=== PATIENT | female | born 1975 | race American Indian/Alaskan Native ===

== ENCOUNTER → 2018-02-16 | Outpatient (CLI) | payer OTHER ==
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
== END | disposition home or self-care (01) ==
LOC: RADXRMAIN 15:46
PROVIDERS: ATTEND Emergency Medicine
DX: S83.402A Sprain of unspecified collateral ligament of left knee, initial encounter (principal); S80.12XA Contusion of left lower leg, initial encounter; S93.402A Sprain of unspecified ligament of left ankle, initial encounter

== ENCOUNTER → 2018-06-19 | Outpatient (CLI) | payer BC ==
[2018-06-19 08:12] LABS: Basophils # (A) 0.1 k/uL (0-0.2); Basophils % (A) 1 %; Eosinophils # (A) 0.4 k/uL (0-0.7); Eosinophils % (A) 4 %; HCT 38.7 % (34.0-46.0); HGB 12.4 gm/dL (11.4-16.0); Lymphocytes % (A) 28 %; MCH 29.3 pg (25.0-35.0); MCHC 32.1 g/dL (31.0-37.0); MCV 91.1 fL (80.0-100.0); Mean Platelet Volume 6.5; Monocytes # (A) 0.7 k/uL (0-1.0); Monocytes % (A) 6 %; Neutrophils # (A) 6.5 k/uL (1.3-7.7); Neutrophils % (A) 60 %; Platelet Count 487 k/uL (150-450); RBC 4.25 m/uL (3.80-5.40); RDW 13.7 % (11.5-15.5); WBC 10.8 k/uL (3.8-10.6)
[2018-06-19 08:54] LABS: ALT 37 U/L (9-52); AST 32 U/L (14-36); Albumin 3.9 g/dL (3.5-5.0); Alkaline Phosphatase 79 U/L (38-126); Anion Gap 9 mmol/L; Blood Urea Nitrogen 11 mg/dL (7-17); Carbon Dioxide 26 mmol/L (22-30); Chloride 106 mmol/L (98-107); Cholesterol 201 mg/dL (<200); Glucose 94 mg/dL (74-99); HDL Cholesterol 39 mg/dL (40-60); LDL Cholesterol,Calculated 111 mg/dL (0-99); Potassium 4.6 mmol/L (3.5-5.1); Sodium 141 mmol/L (137-145); Total Bilirubin 0.3 mg/dL (0.2-1.3); Total Protein 7.1 g/dL (6.3-8.2); Triglycerides 255 mg/dL (<150)
[2018-06-19 09:10] LABS: T4, Free (Free Thyroxine) 0.86 ng/dL (0.78-2.19)
== END | disposition home or self-care (01) ==
LOC: LABWHC1 07:34
PROVIDERS: ATTEND Family Medicine
DX: Z00.00 Encounter for general adult medical examination without abnormal findings (principal); F41.1 Generalized anxiety disorder; J06.9 Acute upper respiratory infection, unspecified; F33.0 Major depressive disorder, recurrent, mild
CPT/HCPCS: 36415; 80053; 80061; 84439; 84443; 85025

== ENCOUNTER → 2018-06-19 | Outpatient (CLI) | payer BC ==
--- NOTE | 2018-06-20 10:55 | MM ---
Reason for exam: screening (asymptomatic). Last mammogram was performed 3 years and 8 months ago. History: Family history of breast cancer in paternal aunt at age 40. Physical Findings: A clinical breast exam by your physician is recommended on an annual basis and results should be correlated with mammographic findings. MG 3D Screening Mammo W/Cad Bilateral CC and MLO view(s) were taken. Prior study comparison: October 07, 2014, bilateral MG screening mammo w CAD. The breast tissue is heterogeneously dense. This may lower the sensitivity of mammography. There is no discrete abnormality. ASSESSMENT: Benign, BI-RAD 2 RECOMMENDATION: Routine screening mammogram of both breasts in 1 year.
== END | disposition home or self-care (01) ==
LOC: RADMAMWWP 07:17
PROVIDERS: ATTEND Obstetrics & Gynecology
DX: Z12.31 Encounter for screening mammogram for malignant neoplasm of breast (principal)
CPT/HCPCS: 77063; 77067

== ENCOUNTER → 2019-02-24 | Outpatient (CLI) | payer BC ==
[2019-02-24 10:12] LABS: Basophils % (A) 1 %; Eosinophils # (A) 0.3 k/uL (0-0.7); Eosinophils % (A) 4 %; HCT 39.3 % (34.0-46.0); HGB 12.8 gm/dL (11.4-16.0); Lymphocytes % (A) 24 %; MCH 29.7 pg (25.0-35.0); MCHC 32.5 g/dL (31.0-37.0); MCV 91.5 fL (80.0-100.0); Mean Platelet Volume 6.2; Monocytes # (A) 0.5 k/uL (0-1.0); Monocytes % (A) 6 %; Neutrophils # (A) 5.5 k/uL (1.3-7.7); Neutrophils % (A) 65 %; Platelet Count 485 k/uL (150-450); RBC 4.29 m/uL (3.80-5.40); RDW 13.3 % (11.5-15.5); WBC 8.4 k/uL (3.8-10.6)
[2019-02-24 17:04] LABS: Albumin 4.3 g/dL (3.80-4.90); Albumin/Globulin Ratio 1.95 (1.60-3.17); Anion Gap 7.6 mmol/L (4.00-12.00); Calcium 9.1 mg/dL (8.7-10.3); Carbon Dioxide 24.4 mmol/L (21.6-31.8); Globulin 2.2 g/dL (1.6-3.3); Potassium 4.3 mmol/L (3.5-5.5); Total Bilirubin 0.2 mg/dL (0.2-1.2); Total Protein 6.5 g/dL (6.2-8.2)
[2019-02-24 17:08] LABS: T4, Free (Free Thyroxine) 1.1 ng/dL (0.80-1.80)
[2019-02-25 16:16] LABS: C. trachomatis,PCR Negative (Neg,Equiv); Chlamydia trachomatis Source Urine; N. gonorrhoeae,PCR Negative (Neg,Equiv); Neisseria Source Urine
[2019-02-26 19:16] LABS: HIV 1 AB Non-Reactive (Non-Reactive); HIV AB P24 Non-Reactive (Non-Reactive); HIV P24 AG Non-Reactive (Non-Reactive)
== END | disposition home or self-care (01) ==
LOC: LABWHC1 09:35
PROVIDERS: ATTEND Family Medicine
DX: F41.1 Generalized anxiety disorder (principal); Z20.2 Contact with and (suspected) exposure to infections with a predominantly sexual mode of transmission; Z71.41 Alcohol abuse counseling and surveillance of alcoholic
CPT/HCPCS: 36415; 80053; 80061; 84439; 84443; 85025; 86780; 87390; 87491; 87591

== ENCOUNTER → 2020-06-09 | Outpatient (CLI) | payer BC ==
--- NOTE | 2020-06-09 14:30 | MM ---
Reason for exam: screening (asymptomatic). Last mammogram was performed 2 years ago. History: Family history of breast cancer in paternal aunt at age 40. Physical Findings: A clinical breast exam by your physician is recommended on an annual basis and results should be correlated with mammographic findings. MG 3D Screening Mammo W/Cad Bilateral CC and MLO view(s) were taken. Prior study comparison: June 19, 2018, bilateral MG 3d screening mammo w/cad. October 07, 2014, bilateral MG screening mammo w CAD. The breast tissue is heterogeneously dense. This may lower the sensitivity of mammography. Asymmetric breast tissue left posterior upper quadrant. There is no discrete abnormality. No change from 2013. ASSESSMENT: Negative, BI-RAD 1 RECOMMENDATION: Routine screening mammogram of both breasts in 1 year.
== END | disposition home or self-care (01) ==
LOC: RADMAMWWP 09:18
PROVIDERS: ATTEND Obstetrics & Gynecology
DX: Z12.31 Encounter for screening mammogram for malignant neoplasm of breast (principal)
CPT/HCPCS: 77063; 77067

== ENCOUNTER → 2021-12-11 | Outpatient (CLI) | payer BC ==
--- NOTE | 2021-12-15 09:26 | MM ---
Reason for exam: screening (asymptomatic). Last mammogram was performed 1 year and 6 months ago. History: Family history of breast cancer in mother at age 73 and breast cancer in paternal aunt at age 40. Physical Findings: A clinical breast exam by your physician is recommended on an annual basis and results should be correlated with mammographic findings. MG 3D Screening Mammo W/Cad Bilateral CC and MLO view(s) were taken. Prior study comparison: June 09, 2020, bilateral MG 3d screening mammo w/cad. June 19, 2018, bilateral MG 3d screening mammo w/cad. There are scattered fibroglandular densities. There is chronic nodularity in the left breast medially and laterally with low density nodules suggestive of cysts. No significant changes when compared with prior studies. ASSESSMENT: Benign, BI-RAD 2 RECOMMENDATION: Routine screening mammogram of both breasts in 1 year.
== END | disposition home or self-care (01) ==
LOC: RADMAMWWP 15:09
PROVIDERS: ATTEND Obstetrics & Gynecology
DX: Z12.31 Encounter for screening mammogram for malignant neoplasm of breast (principal)
CPT/HCPCS: 77063; 77067

== ENCOUNTER → 2022-11-17 | Outpatient (CLI) | payer BC ==
[2022-11-17 10:28] LABS: Basophils # (A) 0.05 X 10*3/uL (0.00-0.10); Basophils % (A) 0.4 %; Eosinophils % (A) 3.4 %; HCT 41.2 % (37.2-46.3); HGB 13.1 g/dL (12.0-15.0); Immature Grans, Automated 0.3 %; Lymphocytes # (A) 3.26 X 10*3/uL (0.90-5.00); Lymphocytes % (A) 27.9 %; MCH 29.1 pg (27.0-32.0); MCHC 31.8 g/dL (32.0-37.0); MCV 91.6 fL (80.0-97.0); Mean Platelet Volume 9.4 fL (9.5-12.2); Monocytes # (A) 0.95 X 10*3/uL (0.20-1.00); Monocytes % (A) 8.1 %; NRBC Per 100 WBC 0 /100 WBCS (0.0-0.0); Neutrophils # (A) 6.97 X 10*3/uL (1.80-7.70); Neutrophils % (A) 59.9 %; Platelet Count 544 X 10*3/uL (140-440); RDW 14.2 % (11.5-14.5); WBC 11.67 X 10*3/uL (4.50-10.00)
[2022-11-18 03:19] LABS: ALT 16 U/L (8-44); AST 17 U/L (13-35); African American GFR (CKD) 89.5 (60.0-200.0); Albumin 4.1 g/dL (3.8-4.9); Albumin/Globulin Ratio 1.37 (1.60-3.17); Alkaline Phosphatase 83 U/L (41-126); BUN/Creat Ratio 9.33 Ratio (12.00-20.00); Blood Urea Nitrogen 8.4 mg/dL (9.0-27.0); Carbon Dioxide 21.6 mmol/L (20.0-27.5); Chloride 106 mmol/L (96-109); Chol/HDL Ratio 5.57 Ratio; Glucose 95 mg/dL (70-110); LDL Cholesterol,Calculated 130.7 mg/dL (0.0-131.0); Non-African American GFR(CKD) 77.2 (60.0-200.0); Potassium 4.2 mmol/L (3.5-5.5); Sodium 139 mmol/L (135-145); Total Protein 7.1 g/dL (6.2-8.2)
== END | disposition home or self-care (01) ==
LOC: LABWHC1 07:03
PROVIDERS: ATTEND Nurse Practitioner Women's Health
DX: H11.30 Conjunctival hemorrhage, unspecified eye (principal); E66.9 Obesity, unspecified; Z68.39 Body mass index [BMI] 39.0-39.9, adult
CPT/HCPCS: 36415; 80053; 80061; 82306; 84439; 84443; 85025; 85303; 85306; 85730

== ENCOUNTER → 2023-04-20 | Outpatient (CLI) | payer BC ==
--- NOTE | 2023-04-20 09:29 | MM ---
Reason for Exam: Clinical finding. Last mammogram was performed 1 year(s) and 4 month(s) ago. Indicated Problems: Lump or thickening of the right side for 1 Week(s). Patient History: Menarche at age 15. First Full-Term at age 26. Patient has history of breast feeding. Paternal aunt had breast cancer, age 40. Mother had breast cancer, age 73. Risk Values: Jyoti 5 year model risk: 1.6%. NCI Lifetime model risk: 17.6%. Prior Study Comparison: 10/07/2014 Bilateral Screening Mammogram, [facility]. 06/19/2018 Bilateral Screening Mammogram, [facility]. 06/09/2020 Bilateral Screening Mammogram, [facility]. 12/11/2021 Bilateral Screening Mammogram, [facility]. Tissue Density: The breast tissue is heterogeneously dense. This may lower the sensitivity of mammography. Findings: Analyzed By CAD. Pattern appears symmetrical and stable. No significant interval change is evident. No mammographic abnormality of the palpable marker is evident. Ultrasound is recommended for additional evaluation of the palpable abnormality. No suspicious groups of microcalcifications, spiculated or lobular masses, architectural distortion or other secondary signs of malignancy are mammographically apparent. Overall Assessment: Incomplete: need additional imaging evaluation, BI-RAD 0 Management: Diagnostic Breast Ultrasound of the right breast. A negative mammogram report should not preclude additional follow up of suspicious palpable abnormalities. Patient should continue monthly self breast exam. A clinical breast exam by your physician is recommended on an annual basis and results should be correlated with mammographic findings. Electronically signed and approved by: Vaughn Real D.O. Radiologis
--- NOTE | 2023-04-20 10:01 | USB ---
Reason for Exam: Clinical finding. Patient History: Menarche at age 15. First Full-Term at age 26. Patient has history of breast feeding. Paternal aunt had breast cancer, age 40. Mother had breast cancer, age 73. Risk Values: Jyoti 5 year model risk: 1.6%. NCI Lifetime model risk: 17.6%. Technique: Method: Targeted. Prior Study Comparison: 06/19/2018 Bilateral Screening Mammogram, [facility]. 06/09/2020 Bilateral Screening Mammogram, [facility]. 12/11/2021 Bilateral Screening Mammogram, [facility]. Findings: The area of palpable concern of the right breast, the axilla of the right breast and the retroareolar of the right breast were scanned. No solid or cystic masses are identified. No discrete abnormality in the subareolar region of the palpable abnormality. Clinical management is recommended. Overall Assessment: Negative, BI-RAD 1 Management: Screening Mammogram of both breasts in 8 months. A clinical breast exam by your physician is recommended on an annual basis and results should be correlated with mammographic findings. This exam should not preclude additional follow-up of suspicious palpable abnormalities. Results were given to the patient verbally at the time of exam. Electronically signed and approved by: Vaughn Real D.O. Radiologis
== END | disposition home or self-care (01) ==
LOC: RADMAMWWP 08:54
PROVIDERS: ATTEND Obstetrics & Gynecology
DX: N63.10 Unspecified lump in the right breast, unspecified quadrant (principal); Z80.3 Family history of malignant neoplasm of breast
CPT/HCPCS: 77062; 77066

== ENCOUNTER → 2023-08-04 | Outpatient (CLI) | payer BC ==
[2023-08-04 13:11] VITALS: BP 137/90; PULSE 71; RESP 16; TEMP 98.1
--- NOTE | 2023-08-04 13:33 | P.PCN ---
Date of Procedure: 08/04/23 Preoperative Diagnosis: nevis right breast Postoperative Diagnosis: same Procedure(s) Performed: removal nevis right breast Anesthesia: local Surgeon: Ayana Mg Pathology: other (nevis) Condition: stable Disposition: same day Operative Findings: nevis right breast Description of Procedure: The area of concern in the right breast was prepped in a sterile fashion. The lesion was located in the periareolar region at approximately 7:00. One percent lidocaine was used to anesthetize the area of concern. Wide excision was performed. The lesion was approximately 6 mm in size. The skin was closed using a nylon suture. The patient tolerated the procedure in stable condition. All instrument and sponge counts were correct at the end of the case.
== END ==
LOC: WWCWWP 12:43
PROVIDERS: ATTEND Surgery
DX: N63.10 Unspecified lump in the right breast, unspecified quadrant (principal); F17.200 Nicotine dependence, unspecified, uncomplicated

== ENCOUNTER → 2023-08-12 | Outpatient (CLI) | payer BC ==
--- NOTE | 2023-08-12 16:01 | P.PN ---
Progress Note - Text Progress Note Date: 08/12/23 The patient had resection of a seborrheic keratosis of her right breast on 08-04-23. She did well with the procedure. Examination: Incision: Clean and dry Plan: Suture removal Follow-up bilateral mammogram in March with examination at that time Patient to follow up sooner any questions or concerns CC: DR. Gaston, Dr. Cornell
[2023-08-12 16:18] VITALS: BP 147/92; PULSE 89; RESP 16; TEMP 97.8
== END ==
LOC: WWCWWP 15:44
PROVIDERS: ATTEND Surgery
DX: S21.001D Unspecified open wound of right breast, subsequent encounter (principal); F17.200 Nicotine dependence, unspecified, uncomplicated; Z98.890 Other specified postprocedural states

== ENCOUNTER → 2023-12-19 | Outpatient (CLI) | payer BC ==
--- NOTE | 2023-12-20 09:41 | MM ---
Reason for Exam: Screening (asymptomatic). Last screening mammogram was performed 8 month(s) ago. Patient History: Menarche at age 15. First Full-Term at age 26. Patient has history of breast feeding. Paternal aunt had breast cancer, age 40. Mother had breast cancer, age 73. Last menstrual period: Risk Values: Jyoti 5 year model risk: 1.6%. NCI Lifetime model risk: 17.3%. Prior Study Comparison: 06/09/2020 Bilateral Screening Mammogram, [facility]. 12/11/2021 Bilateral Screening Mammogram, [facility]. 04/20/2023 Bilateral MG 3D diag mammo w/cad [place], [place]. Tissue Density: The breast tissue is almost entirely fat. Findings: Analyzed By CAD. There is no suspicious group of microcalcifications or new suspicious mass in either breast. Benign calcifications noted. Overall Assessment: Benign, BI-RAD 2 Management: Screening Mammogram of both breasts in 1 year. . Patient should continue monthly self-breast exams. A clinical breast exam by your physician is recommended on an annual basis. This exam should not preclude additional follow-up of suspicious palpable abnormalities. Note on Jyoti scores and lifetime risk: 1. A Jyoti score greater than 3% is considered moderate risk. If this is the case, consider specialist referral to assess eligibility for a risk reducing agent. 2. If overall lifetime risk for the development of breast cancer is 20% or higher, the patient may qualify for future screening with alternating mammogram and breast MRI. Electronically signed and approved by: Rosalio Pires M.D. Radiologis
== END | disposition home or self-care (01) ==
LOC: RADMAMWWP 15:04
PROVIDERS: ATTEND Surgery
DX: Z12.31 Encounter for screening mammogram for malignant neoplasm of breast (principal); Z80.3 Family history of malignant neoplasm of breast
CPT/HCPCS: 77063; 77067

== ENCOUNTER → 2023-12-29 | Outpatient (CLI) | payer BC ==
--- NOTE | 2023-12-29 09:08 | P.PN ---
Subjective Progress Note Date: 12/29/23 Principal diagnosis: Fibrocystic breast changes right breast lump Paty is a 48 year old white female seen in consultation for Dr. Cornell regarding a right breast mass. She had a bilateral mammogram on 04-20-23 which was BIRAD 0 and than a right breast ultrasound on 04-20-23 which was BIRAD 1. She had noted a change on the outer aspect of her right nipple approximately 3 months prior. It had minimally increased in size. It was not painful. She has not noted any other lumps masses or nodules of concern in either breast. She was not complaining of any recent trauma or infection of the breast. She had not had any surgery on her breast. She underwent a resection of the skin of the right nipple area on 08-04-23 which was benign. Bilateral mammogram on 12-19-23 BIRAD 2 At this time she is not complaining of any new lumps masses or nodules of concern in either breast. She is not complaining of any pain in her breast. Caffeine: coffee am and pop in afternoon nicotine: 1-2 cigarettes per day Chocolate: occasional BCP: 6 years, then used the patch for several years hormones: none had an ablation > 10 years ago, not menopausal yet her hormone levels were recently checked Family history: mother: stage 4 breast cancer; dx. 2018, doing well at this time maternal aunt: breast cancer paternal aunt: breast cancer paternal aunt: ? leukemia maternal grandmother: leukemia Hormonal history: Menarche: 15 , breast fed: yes, age at first : 26 Patient done at 38, she is not yet menopausal recently her hormone levels were checked Surgical history: ablation right knee surgery/torn meniscus right breast skin biopsy Medical History: depression Social History: 18:1-2 cigarettes per day Alcohol: occasional drugs none - Constitutional Constitutional: Reports sweats - EENT Eyes: denies blurred vision, denies pain Ears: deny: decreased hearing, tinnitus Ears, nose, mouth and throat: Reports headache, Denies sore throat - Breasts Breasts: bilateral: as per HPI - Cardiovascular Cardiovascular: Denies chest pain, Denies shortness of breath - Respiratory Respiratory: Denies cough - Gastrointestinal Gastrointestinal: Denies abdominal pain, Denies diarrhea, Denies nausea, Denies vomiting - Genitourinary (Female) Genitourinary: Denies dysuria, Denies hematuria - Menstruation Menstruation: Reports as per HPI - Musculoskeletal Musculoskeletal: Denies myalgias - Integumentary Integumentary: Denies pruritus, Denies rash - Neurological Neurological: Denies numbness, Denies weakness - Psychiatric Psychiatric: Reports anxiety, Reports depression - Endocrine Endocrine: Reports fatigue, Reports weight change - Hematologic/Lymphatic Comment: none - Allergic/Immunologic Allergic/Immunologic: Reports as per HPI Past Medical History Past Medical History: No Reported History History of Any Multi-Drug Resistant Organisms: None Reported Past Surgical History: No Surgical Hx Reported Additional Past Anesthesia/Blood Transfusion Reaction / Comment(s): has never had anesthesia, no family problems w/anesthesia Past Psychological History: Depression Smoking Status: Current every day smoker Past Alcohol Use History: Occasional Past Drug Use History: None Reported - Past Family History Brother(s) Family Medical History: Deep Vein Thrombosis (DVT) Medications and Allergies Home Medications Medication Instructions Recorded Confirmed Type Venlafaxine HCl ER [Effexor Xr] 150 mg PO DAILY 06/07/14 07/22/23 History Ibuprofen [Motrin] 600 mg PO Q6HR PRN #40 tab 06/10/14 07/22/23 Rx Ascorbic Acid [Vitamin C] 1 tab PO DAILY 07/22/23 07/22/23 History Echinacea Purpurea Extract 1 tab PO DAILY 07/22/23 07/22/23 History [Echinacea] Mecobalamin [Vitamin B-12] 1 tab PO DAILY 07/22/23 07/22/23 History Pyridoxine [Vitamin B-6] 1 tab PO DAILY 07/22/23 07/22/23 History Vitamin E Acetate [Vitamin E] 134 mg PO DAILY 07/22/23 07/22/23 History Zinc, Potassium, Magnesium 1 tab PO DAILY 07/22/23 07/22/23 History Allergies Allergy/AdvReac Type Severity Reaction Status Date / Time No Known Allergies Allergy Verified 07/22/23 14:48 Objective - Vital Signs Vital signs: Vital Signs Temp 99.2 F 12/29/23 08:54 Pulse 96 12/29/23 08:54 Resp 16 12/29/23 08:54 BP 148/83 12/29/23 08:54 Pulse Ox 97 12/29/23 08:54 FiO2 Intake & Output 12/28/23 12/29/23 12/29/23 18:59 06:59 18:59 Weight 92.986 kg - Constitutional General appearance: Present: cooperative - EENT Eyes: Present: EOMI ENT: Present: hearing grossly normal - Neck Neck: Present: normal ROM - Respiratory Respiratory: bilateral: CTA - Cardiovascular Rhythm: regular Heart sounds: normal: S1, S2 - Integumentary Integumentary: Present: normal turgor - Musculoskeletal Musculoskeletal: Present: gait normal - Psychiatric Psychiatric: Present: A&O x's 3, appropriate affect, intact judgment & insight - Additional findings Additional findings: Breast examination: BRA: 36C Inspection: Bilateral grade 2/3 ptosis Palpation: Right breast: multi-positional exam no dominant masses or nodules of concern at the periareolar region there was a resection in benign Right axilla: No adenopathy of concern Left breast: Multi-positional exam no dominant masses or nodules of concern fibrocystic changes Left axilla: No adenopathy of concern Assessment and Plan Assessment: Impression: Fibrocystic breast changes bilateral mammogram on 12-19-23 BIRAD 2 Plan: Removal of skin nevus right breast done on 08-04-23 benign Bilateral mammogram 1 year, examination at that time CC: Dr. Gaston
[2023-12-29 09:27] VITALS: BP 148/83; PULSE 96; RESP 16; TEMP 99.2
== END ==
LOC: WWCWWP 08:40
PROVIDERS: ATTEND Surgery
DX: N60.11 Diffuse cystic mastopathy of right breast (principal); N60.12 Diffuse cystic mastopathy of left breast; F32.A Depression, unspecified; F12.90 Cannabis use, unspecified, uncomplicated; F17.210 Nicotine dependence, cigarettes, uncomplicated; Z80.3 Family history of malignant neoplasm of breast

== ENCOUNTER 2024-04-13 12:29 | Emergency (ER) | payer BC ==
--- NOTE | 2024-04-13 13:00 | ED ---
Lower Extremity Injury HPI - General Chief Complaint: Extremity Injury, Lower Stated Complaint: R Ankle Injury Time Seen by Provider: 04/13/24 12:57 Source: patient, RN notes reviewed Mode of arrival: ambulatory Limitations: no limitations - History of Present Illness Initial Comments: This is a 48-year-old female who presents to the emergency department for a right ankle injury. States that last night she tripped and fell on the bottom step, injuring her right ankle. Denies hitting her head or sustaining any other injuries. She has since had increasing pain and difficulty with ambulation. MD Complaint: ankle injury - Related Data Home Medications Medication Instructions Recorded Confirmed Venlafaxine HCl ER [Effexor Xr] 150 mg PO DAILY 06/07/14 12/29/23 Ascorbic Acid [Vitamin C] 1 tab PO DAILY 07/22/23 12/29/23 Echinacea Purpurea Extract 1 tab PO DAILY 07/22/23 12/29/23 [Echinacea] Mecobalamin [Vitamin B-12] 1 tab PO DAILY 07/22/23 12/29/23 Pyridoxine [Vitamin B-6] 1 tab PO DAILY 07/22/23 12/29/23 Vitamin E Acetate [Vitamin E] 134 mg PO DAILY 07/22/23 12/29/23 Zinc, Potassium, Magnesium 1 tab PO DAILY 07/22/23 12/29/23 Previous Rx's Medication Instructions Recorded Ibuprofen [Motrin] 600 mg PO Q6HR PRN #40 tab 06/10/14 Allergies Allergy/AdvReac Type Severity Reaction Status Date / Time No Known Allergies Allergy Verified 04/13/24 12:41 Review of Systems ROS Statement: Those systems with pertinent positive or pertinent negative responses have been documented in the HPI. ROS Other: All systems not noted in ROS Statement are negative. Past Medical History Past Medical History: No Reported History History of Any Multi-Drug Resistant Organisms: None Reported Past Surgical History: No Surgical Hx Reported Additional Past Anesthesia/Blood Transfusion Reaction / Comment(s): has never had anesthesia, no family problems w/anesthesia Past Psychological History: Depression Smoking Status: Current every day smoker Past Alcohol Use History: Occasional Past Drug Use History: None Reported - Past Family History Brother(s) Family Medical History: Deep Vein Thrombosis (DVT) General Exam - General Exam Comments Initial Comments: Visual Physical Exam Vital signs reviewed General: Well-appearing, nontoxic, no acute distress. Head: Normocephalic, atraumatic Eyes: PERRLA, EOMI ENT: Airway patent Chest: Nonlabored breathing Skin: No visual rash, normal skin tone Neuro: Alert and oriented 3 Musculoskeletal: No gross abnormalities Limitations: no limitations General appearance: alert, in no apparent distress Head exam: Present: atraumatic, normocephalic, normal inspection Respiratory exam: Present: normal lung sounds bilaterally. Absent: respiratory distress, wheezes, rales, rhonchi, stridor Cardiovascular Exam: Present: regular rate, normal rhythm, normal heart sounds. Absent: systolic murmur, diastolic murmur, rubs, gallop, clicks Extremities exam: Present: other (Generalized tenderness to the right ankle without any obvious swelling or ecchymosis. Range of motion limited by pain. 2+ DP and PT pulses.) Neurological exam: Present: alert, oriented X3, CN II-XII intact Psychiatric exam: Present: normal affect, normal mood Skin exam: Present: warm, dry, intact, normal color. Absent: rash Course Vital Signs 04/13/24 04/13/24 12:37 15:23 Temperature 98.2 F 98.6 F Pulse Rate 87 76 Respiratory 16 18 Rate Blood Pressure 144/90 136/85 O2 Sat by Pulse 98 96 Oximetry Medical Decision Making - Medical Decision Making This is a 48-year-old female who presents to the emergency department for a right ankle injury. Was pt. sent in by a medical professional or institution? @ -No Did you speak to anyone other than the patient for history? @ -No Did you review nursing and triage notes? @ -Yes, and I agree, it is accurate with regards to the patient's symptoms. Were old charts reviewed? @ -No Differential Diagnosis? @ -Differential Musculoskeletal: Muscular strain, contusion, ligament sprain, fracture, arthritis, septic arthritis, bursitis, cellulitis, muscle spasm, nerve compression, DVT, arterial occlusion, herpes zoster, electrolyte abnormality, tumor.... This is not meant to be in all inclusive list EKG interpreted by me (3pts min.)? @ -Not obtained X-rays interpreted by me (1pt min.)? @ -X-ray of the right foot and ankle obtained. My interpretation identifies no acute fractures. CT interpreted by me (1pt min.)? @ -Not obtained U/S interpreted by me (1pt. min.)? @ -Not obtained What testing was considered but not performed? (CT, X-rays, U/S, labs)? Why? @ -None What meds were considered but not given? Why? @ -None Did you discuss the management of the patient with other professionals? @ -No Did you reconcile home meds? @ -No Was smoking cessation discussed for >3mins.? @ -No Was critical care preformed (if so, how long)? @ -No Were there social determinants of health that impacted care today? How? (Homelessness, low income, unemployed, alcoholism, drug addiction, transportation, low edu. Level, literacy, decrease access to med. care, alf, rehab)? @ -No Was there de-escalation of care discussed even if they declined? (Discuss DNR or withdrawal of care, Hospice)? @ -No What co-morbidities impacted this encounter? (DM, HTN, Smoking, COPD, CAD, Cancer, CVA, Hep., AIDS, mental health diagnosis, sleep apnea, morbid obesity)? @ -None Was patient admitted / discharged? @ -Discharged. X-ray of the right foot and ankle obtained revealing no acute process. Ibuprofen administered in the emergency department for pain relief. She was able to ambulate, however it was limited by pain. She was given crutches to be used as needed as well as a Velcro stirrup splint. Advised ibuprofen and Tylenol as needed for pain relief as well as ice and elevation. Undiagnosed new problem with uncertain prognosis? @ -None Drug Therapy requiring intensive monitoring for toxicity (Heparin, Nitro, Insulin, Cardizem)? @ -None Were any procedures done? @ -None Diagnosis/symptom? @ -Right ankle sprain Acute, or Chronic, or Acute on Chronic? @ -Acute Uncomplicated (without systemic symptoms) or Complicated (systemic symptoms)? @ -Uncomplicated Side effects of treatment? @ -None Exacerbation, Progression, or Severe Exacerbation] @ -Not applicable Poses a threat to life or bodily function? @ -This may limit her ability to ambulate for the meantime. Return precautions reviewed in depth, the patient is instructed to return to the emergency department with any new, worsening, or concerning symptoms. Patient verbalized understanding. This case was discussed in detail with the attending ED physician, Dr. Parker. Presentation, findings, and treatment plan discussed in detail as well. - Radiology Data Radiology results: report reviewed, image reviewed Disposition Clinical Impression: Right ankle sprain Disposition: HOME SELF-CARE Instructions (If sedation given, give patient instructions): Ankle Sprain (ED) Additional Instructions: Return to the emergency department with any new, worsening, or concerning symptoms. Alternate with ibuprofen and Tylenol as needed for pain relief. Apply ice for 15 to 20 minutes every 2-3 hours and keep the leg elevated. Follow up with your primary care provider in 1-2 days. Is patient prescribed a controlled substance at d/c from ED?: No Referrals: Heron Gaston MD [Primary Care Provider] - 1-2 days Time of Disposition: 14:43
--- NOTE | 2024-04-13 13:58 | XR ---
EXAMINATION TYPE: XR ankle complete RT DATE OF EXAM: 04/13/2024 COMPARISON: NONE HISTORY: Pain FINDINGS: Three views of the ankle demonstrate the ankle mortise to be intact and symmetric. The joint spaces are preserved. The osseous structures are intact. Large calcaneal spurs. Small oval lucency in the distal diaphysis of the posterior cortex of the fibula could be projectional. Small intraosseous lesi on not excluded. Benign fibrous cortical defect in the differential diagnosis. IMPRESSION: 1. No definite acute fracture or dislocation, if symptoms persist follow-up study in 7 to 10 days wou ld be suggested. 2. Large calcaneal spur. 3. Possible tiny interosseous cortical lesion distal fibula.
--- NOTE | 2024-04-13 14:02 | XR ---
EXAMINATION TYPE: XR foot complete RT DATE OF EXAM: 04/13/2024 COMPARISON: NONE HISTORY: Pain TECHNIQUE: Three views are submitted. FINDINGS: The osseous structures are intact. There is no acute fracture or dislocation. Joint spaces are p reserved. Calcaneal spurs. Mild first MTP hypertrophic arthropathy. IMPRESSION: 1. No acute fracture or dislocation. If symptoms persist, follow-up exam in 7 to 10 days could be ob tained.
[2024-04-13] MEDS: HYDROcodone/APAP 5-325MG 1 EACH TAB PO STA (15:04)
[2024-04-13] MEDS: IBUPROFEN 800 MG TAB PO STA (15:05)
[2024-04-13] MEDS: IBUPROFEN 600 MG STARTER PACK 4 TAB BTL PO STA (15:12)
[2024-04-13] MEDS: ACET/COD 300 MG/30 MG STARTER PACK 6 TAB BTL PO STA (15:13)
[2024-04-13 15:49] VITALS: BP 136/85; PULSE 76; RESP 18; TEMP 98.6
== END 2024-04-13 15:25 | disposition home or self-care (01) ==
LOC: EC 12:29
DX: S93.401A Sprain of unspecified ligament of right ankle, initial encounter (principal); F17.200 Nicotine dependence, unspecified, uncomplicated; W01.0XXA Fall on same level from slipping, tripping and stumbling without subsequent striking against object, initial encounter
CPT/HCPCS: 99283